=== PATIENT | female | born 1955 | race Caucasian/White ===

== ENCOUNTER → 2017-12-26 | Outpatient (CLI) | payer OTHER | LOC: FIMAGING 16:04 | PROVIDERS: ATTEND Family Medicine Sports Medicine | DX: M17.11 Unilateral primary osteoarthritis, right knee (principal); M25.551 Pain in right hip ==

== ENCOUNTER → 2018-01-12 | Outpatient (CLI) | payer OTHER ==
--- NOTE | 2018-01-12 15:32 | CPEEG ---
[f rep st] ELECTROENCEPHALOGRAM DATE OF STUDY: 01/12/2018 INTERPRETATION: Normal EEG during wakefulness and drowsiness. There is no potentially epileptogenic abnormalities present in the recording per report. REPORT: This EEG contains 10 Hz alpha to the posterior head regions. There was no abnormal activation at rest, during photic stimulation or hyperventilation. The patient intermittently became drowsy throughout the study. There was no abnormal activation during drowsiness or during times of arousal. /[id number]/MODL MTDD
== END ==
LOC: FCPNEURO 12:38
PROVIDERS: ATTEND Psychiatry & Neurology Neurology
DX: R25.1 Tremor, unspecified (principal); R20.2 Paresthesia of skin

== ENCOUNTER → 2018-02-14 | Outpatient (CLI) | payer OTHER ==
[~2018-02-14] MED LIST: GADOBUTROL 10 ML VIAL IVP ONE
== END ==
LOC: FIMAGING 08:52
PROVIDERS: ATTEND Psychiatry & Neurology Neurology
DX: R20.2 Paresthesia of skin (principal); R90.82 White matter disease, unspecified
CPT/HCPCS: A9585

== ENCOUNTER 2018-05-12 | Emergency (ER) | payer OTHER | END 2018-05-12 14:30 | disposition home or self-care (01) | DX: M62.81 Muscle weakness (generalized) (principal); I82.811 Embolism and thrombosis of superficial veins of right lower extremity | CPT/HCPCS: 70450-PO; 71275-PO; 80053-PO; 84484-PO; 93971-PO; Q9967 ==

== ENCOUNTER → 2018-07-02 | Outpatient (CLI) | payer OTHER | LOC: FIMAGING 10:48 | PROVIDERS: ATTEND Family Medicine | DX: I80.01 Phlebitis and thrombophlebitis of superficial vessels of right lower extremity (principal); I83.891 Varicose veins of right lower extremity with other complications ==